=== PATIENT | male | born 2000 | race American Indian/Alaskan Native ===

== ENCOUNTER 2020-08-24 03:17 | Emergency (ER) | payer OTHER ==
[2020-08-24 04:33] LABS: Basophils # (Auto) 0.1 K/mm3 (0.0-0.1); Basophils % (Auto) 1.2 % (0.0-1.8); Eosinophils # (Auto) 0.1 K/mm3 (0.0-0.4); Eosinophils % (Auto) 2.5 % (0.0-4.3); Hematocrit 39.7 % (35.5-45.6); Hemoglobin 13.4 gm/dl (11.8-15.2); Lymphocytes # (Auto) 2.8 K/mm3 (1.2-5.4); Lymphocytes % (Auto) 45.8 % (13.4-35.0); Mean Corpuscular HGB Conc 34 % (32-34); Mean Corpuscular Volume 92 fl (84-94); Monocytes # (Auto) 0.5 K/mm3 (0.0-0.8); Monocytes % (Auto) 7.9 % (0.0-7.3); Platelet Count 309 K/mm3 (140-440); Red Blood Count 4.33 M/mm3 (3.65-5.03); Red Cell Distribution Width 13.4 % (13.2-15.2)
[2020-08-24 04:42] LABS: BUN/Creatinine Ratio 7; Blood Urea Nitrogen 6 mg/dL (9-20); Calcium 9.7 mg/dL (8.4-10.2); Hemolysis Index 4
--- NOTE | 2020-08-24 05:13 | Emergency Department Report ---
ED Psych HPI - General Chief Complaint: Psych Stated Complaint: SUICIDAL/NERVOUS BREAKDOWN/MH Time Seen by Provider: 08/24/20 03:49 Source: patient Mode of arrival: Ambulatory - History of Present Illness Initial Comments: Patient is a 20-year-old F [place] male who is being brought in because his mother feels as he is having a mental breakdown. Patient has been having bouts of rage and then crying throughout the day. Patient started drinking and symptoms worsen. Patient is suicidal at this time. Patient tried to leave from a moving vehicle this evening. 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 Patient was seen this while crying. When asked how much he drank tonight he stated "so what I am drunk" - Related Data Allergies Allergy/AdvReac Type Severity Reaction Status Date / Time No Known Allergies Allergy Unverified 08/24/20 03:30 ED Review of Systems ROS: Stated complaint: SUICIDAL/NERVOUS BREAKDOWN/MH Other details as noted in HPI Comment: All other systems reviewed and negative ED Past Medical Hx - Past Medical History Previous Medical History?: No - Surgical History Past Surgical History?: No - Social History Smoking Status: Never Smoker Substance Use Type: None ED Physical Exam - General Limitations: No Limitations General appearance: alert, anxious, other (intoxicated) - Head Head exam: Present: atraumatic, normocephalic - Eye Eye exam: Present: normal appearance - ENT ENT exam: Present: mucous membranes moist - Neck Neck exam: Present: normal inspection - Respiratory Respiratory exam: Present: normal lung sounds bilaterally. Absent: respiratory distress, wheezes, rales, rhonchi - Cardiovascular Cardiovascular Exam: Present: regular rate, normal rhythm, normal heart sounds. Absent: systolic murmur, diastolic murmur, rubs, gallop - GI/Abdominal GI/Abdominal exam: Present: soft, normal bowel sounds. Absent: distended, tenderness, guarding, rebound - Rectal Rectal exam: Present: deferred - Extremities Exam Extremities exam: Present: normal inspection - Back Exam Back exam: Present: normal inspection - Neurological Exam Neurological exam: Present: alert, oriented X3 - Psychiatric Psychiatric exam: Present: normal affect, normal mood - Skin Skin exam: Present: warm, dry, intact, normal color. Absent: rash ED Course Vital Signs 08/24/20 08/24/20 03:28 05:12 Temperature 98.0 F Pulse Rate 70 Respiratory 16 20 Rate Blood Pressure 125/81 O2 Sat by Pulse 98 98 Oximetry - Reevaluation(s) Reevaluation #1: 08/24/20 05:14 Patient was placed on a 1013 since he tried to delete from a vehicle tonight in order to kill himself. Patient will obviously need to be reassessed once he reaches clinical sobriety however his mother states he was having suicidal thoughts even prior to the alcohol use. Patient is stable and cleared for psychiatric evaluation ED Medical Decision Making - Lab Data Result diagrams: 08/24/20 03:42 08/24/20 03:42 Lab Results 08/24/20 08/24/20 08/24/20 Range/Units 03:42 03:42 03:42 WBC (4.5-11.0) K/mm3 RBC (3.65-5.03) M/mm3 Hgb (11.8-15.2) gm/dl Hct (35.5-45.6) % MCV (84-94) fl MCH (28-32) pg MCHC (32-34) % RDW (13.2-15.2) % Plt Count (140-440) K/mm3 Lymph % (Auto) (13.4-35.0) % Winn % (Auto) (0.0-7.3) % Eos % (Auto) (0.0-4.3) % Baso % (Auto) (0.0-1.8) % Lymph # (Auto) (1.2-5.4) K/mm3 Winn # (Auto) (0.0-0.8) K/mm3 Eos # (Auto) (0.0-0.4) K/mm3 Baso # (Auto) (0.0-0.1) K/mm3 Seg Neutrophils % (40.0-70.0) % Seg Neutrophils # (1.8-7.7) K/mm3 Sodium 143 (137-145) mmol/L Potassium 3.9 (3.6-5.0) mmol/L Chloride 105.8 (98-107) mmol/L Carbon Dioxide 25 (22-30) mmol/L Anion Gap 16 mmol/L BUN 6 L (9-20) mg/dL Creatinine 0.9 (0.8-1.3) mg/dL Estimated GFR > 60 ml/min BUN/Creatinine Ratio 7 % Glucose 101 H (75-100) mg/dL Calcium 9.7 (8.4-10.2) mg/dL Salicylates < 0.3 L (2.8-20.0) mg/dL Acetaminophen 5.0 L (10.0-30.0) ug/mL Plasma/Serum Alcohol (0-0.07) % 08/24/20 08/24/20 Range/Units 03:42 03:42 WBC 6.1 (4.5-11.0) K/mm3 RBC 4.33 (3.65-5.03) M/mm3 Hgb 13.4 (11.8-15.2) gm/dl Hct 39.7 (35.5-45.6) % MCV 92 (84-94) fl MCH 31 (28-32) pg MCHC 34 (32-34) % RDW 13.4 (13.2-15.2) % Plt Count 309 (140-440) K/mm3 Lymph % (Auto) 45.8 H (13.4-35.0) % Winn % (Auto) 7.9 H (0.0-7.3) % Eos % (Auto) 2.5 (0.0-4.3) % Baso % (Auto) 1.2 (0.0-1.8) % Lymph # (Auto) 2.8 (1.2-5.4) K/mm3 Winn # (Auto) 0.5 (0.0-0.8) K/mm3 Eos # (Auto) 0.1 (0.0-0.4) K/mm3 Baso # (Auto) 0.1 (0.0-0.1) K/mm3 Seg Neutrophils % 42.6 (40.0-70.0) % Seg Neutrophils # 2.6 (1.8-7.7) K/mm3 Sodium (137-145) mmol/L Potassium (3.6-5.0) mmol/L Chloride (98-107) mmol/L Carbon Dioxide (22-30) mmol/L Anion Gap mmol/L BUN (9-20) mg/dL Creatinine (0.8-1.3) mg/dL Estimated GFR ml/min BUN/Creatinine Ratio % Glucose (75-100) mg/dL Calcium (8.4-10.2) mg/dL Salicylates (2.8-20.0) mg/dL Acetaminophen (10.0-30.0) ug/mL Plasma/Serum Alcohol 0.16 H (0-0.07) % Critical care attestation.: If time is entered above; I have spent that time in minutes in the direct care of this critically ill patient, excluding procedure time. ED Disposition Condition: Stable
[2020-08-24 05:16] LABS: Bilirubin,Urine NEG (Negative); Blood,Urine NEG (Negative); Color,Urine Straw (Yellow); Hyaline Casts,Urine 1 /LPF; Mucus,Urine FEW /HPF; Protein,Urine <15 mg/dL mg/dL (Negative); Urobilinogen,Urine < 2.0 mg/dL (<2.0)
[2020-08-24 05:24] LABS: Amphetamine Screen,Urine PRESUMPTIVE NEGATIVE; Benzodiazepines Screen,Urine PRESUMPTIVE NEGATIVE; Cannabinoid Screen,Urine PRESUMPTIVE POSITIVE; Cocaine Screen,Urine PRESUMPTIVE NEGATIVE; Methadone Screen,Urine PRESUMPTIVE NEGATIVE; Opiate Screen,Urine PRESUMPTIVE NEGATIVE
--- NOTE | 2020-08-24 12:00 | Consultation ---
History of Present Illness - Reason for Consult Consult date: 08/24/20 Reason for consult: SI - History of Present Psychiatric Illness Lai Jack is a 20y/o male patient who presented to the ER for suicidal thoughts and trying to jump out of a moving vehicle. The patient was brought in by his mother. During my interview with the patient he is awake. His mother is a t bedside. The patient is a/o x 3. He is a poor historian. He doesn't know what he was diagnosed with in the past or any of his medications. The patient says "that man says it wasn't nothing wrong with me" when asked about his diagnoses. He says "I never took none of that junk" when asked about his medications. Mom says she thinks the patient was on "something for sleep and depression." Mom says the patient has been suicidal for about "two years." She says "last night it got worse and now I'm taking a stand." she says "he needs help." Mom says the patient kept saying "I want to kill myself. There's nothing to live for." The patient says he has seen a psychiatrist in the past but not recent. He admits to smoking "weed" and drinking "occasionally." Mom says the patient paces back and forth and talks to himself. The patient states "what's wrong with that," at mom telling me this. PAST PSYCHIATRIC HISTORY: Diagnoses: Unsure Suicide attempts or Self-harm behavior: Once Prior psychiatric hospitalizations: Denies Substance Abuse history: marijuana Previous psychiatric medications tried: Unable to recall Outpatient treatment: Denies PAST MEDICAL HISTORY: None reported Family Psychiatric History: None reported or documented SOCIAL HISTORY Marital Status: Single Living Arrangements: With mother Employment Status: Unemployed Access to guns/weapons: None reported Education: High school History of Abuse: Denies Legal History: Yes REVIEW OF SYSTEMS Constitutional: Negative for weight loss ENT: Negative for stridor Respiratory: Negative for cough or hemoptysis All other systems reviewed and are negative MENTAL STATUS EXAMINATION General Appearance: Dressed appropriately Behavior: calm and cooperative Mood: "Depressed" Affect and affective range: Restricted Thought Process: goal directed, logical Thought Content: Hopelessness Speech: Normal volume, Regular rate and rhythm Suicidal Ideation: Yes Homicidal Ideation: Denies Hallucinations: Denies Delusions: None elicited Insight and Judgment: Limited Memory/Cognition: Limited Attention: Normal Orientation: Alert, oriented Assessment Bipolar Disorder, Depressed Episode Non compliance with other medical treatment and regimen Treatment Plan [address] 125mg po BID Start Risperidone 0.25mg po BID Start Zoloft 25mg po qd Start Trazodone 50mg po qhs Risks, benefits and alternatives of medications discussed with the patient, questions answered and consent obtained from patient. PSYCHOTHERAPY: Supportive psychotherapy provided MEDICAL: Per primary team DELIRIUM PRECAUTIONS: Please re-orient patient frequently, keep lights on during the day, and minimize benzodiazepines and opiates as these medications could worsen patient's confusion. MEDICAL ART THERAPIST: Defer to primary DISPOSITION: Do recommend acute inpatient psychiatric hospitalization at this time. Will follow up Tuesday if the patient hasn't been placed as of then. Medications and Allergies Allergies Allergy/AdvReac Type Severity Reaction Status Date / Time No Known Allergies Allergy Unverified 08/24/20 03:30 Home Medications Medication Instructions Recorded Confirmed Last Taken Type No Known Home Medications [No 08/24/20 08/24/20 Unknown History Reported Home Medications] Mental Status Exam - Vital signs Last Vital Signs Temp 98.0 F 08/24/20 03:28 Pulse 70 08/24/20 03:28 Resp 20 08/24/20 05:12 BP 125/81 08/24/20 03:28 Pulse Ox 98 08/24/20 05:12 Results Result Diagrams: 08/24/20 03:42 08/24/20 03:42 Abnormal lab results 08/24/20 08/24/20 08/24/20 Range/Units 03:42 03:42 03:42 Lymph % (Auto) (13.4-35.0) % [place] % (Auto) (0.0-7.3) % BUN 6 L (9-20) mg/dL Glucose 101 H (75-100) mg/dL Salicylates < 0.3 L (2.8-20.0) mg/dL Acetaminophen 5.0 L (10.0-30.0) ug/mL Plasma/Serum Alcohol (0-0.07) % 08/24/20 08/24/20 Range/Units 03:42 03:42 Lymph % (Auto) 45.8 H (13.4-35.0) % [place] % (Auto) 7.9 H (0.0-7.3) % BUN (9-20) mg/dL Glucose (75-100) mg/dL Salicylates (2.8-20.0) mg/dL Acetaminophen (10.0-30.0) ug/mL Plasma/Serum Alcohol 0.16 H (0-0.07) % All other labs normal.
[2020-08-24] MEDS ORDERED: DIVALPROEX DR 125 MG TAB PO SCH (13:00)
[2020-08-24] MEDS ORDERED: risperiDONE 0.25 MG TAB PO SCH (13:00)
[2020-08-24] MEDS ORDERED: SERTRALINE 25 MG TAB PO SCH (13:00)
[2020-08-24 14:18] VITALS: BP 118/62
[2020-08-24] MEDS ORDERED: traZODone 50 MG TAB PO SCH (22:00)
== END 2020-08-24 19:38 ==
LOC: ED 03:17
DX: R45.851 Suicidal ideations (principal)
CPT/HCPCS: 36415; 80048; 80307; 80320; 81001; 85025; G0480